=== PATIENT | male | born 1950 | race Caucasian/White ===

== ENCOUNTER 2021-07-16 11:29 | Day surgery (SDC) | payer MEDICARE, OTHER ==
[2021-07-16] VITALS (12 sets, daily range): BP systolic 147–197; BP diastolic 61–104
[~2021-07-16] VITALS: Ht 177.8 cm; Wt 131.1 kg
[~2021-07-16 11:29] MED LIST: fentaNYL/PF 50MCG/1 ML 2ML syringe ONE; iohexol 350 MG/ML 50ML vial IV ONE; iohexol 350MG/ML 100ml bottle IV ONE; midazolam 1 mg/ML 2ml injection ONE
[2021-07-16] MEDS ORDERED: METF-438 PO (12:05)
[2021-07-16] MEDS ORDERED: diphenhydrAMINE 25mg capsule PO PRN (12:05)
[2021-07-16] MEDS ORDERED: LORazepam 0.5 MG tablet PO PRN (12:05)
[2021-07-16] MEDS ORDERED: normal saline 1,000 ML IV SCH (12:05)
[2021-07-16] MEDS ORDERED: nitroGLYCERIN 0.4mg SUBLingual tab SL PRN (12:35)
[2021-07-16] MEDS ORDERED: dextrose 50%-water 50ml dispensing syringe IV PRN ×2 (12:35)
[2021-07-16] MEDS ORDERED: MESSAGE TO PHARMACY PO ONE (12:35)
[2021-07-16] MEDS ORDERED: glucagon, human recombinant 1mg kit SUBCUT PRN (12:35)
[2021-07-16] MEDS ORDERED: DEXTROSE 15 GM of carb/4 tabs (each vial/BOTTLE has 4 tablets) PO PRN ×2 (12:35)
[2021-07-16] MEDS ORDERED: insulin Lispro (HumaLOG) vial - multi-dose SQ SCH (12:35)
[2021-07-16] MEDS ORDERED: midazolam 1 mg/ML 2ml injection ONE (13:26)
[2021-07-16] MEDS ORDERED: LIDOCAINE 1% w/preservative (10 MG/ML) inj. 10mL VIAL ONE (13:26)
[2021-07-16] MEDS ORDERED: proCHLORperazine 10 MG/2 ml inj ONE (13:34)
[2021-07-16] MEDS ORDERED: HYDROmorphone 1 mg/ml syringe ONE (14:10)
[2021-07-16] MEDS ORDERED: nitroGLYCERIN-Tridil 50MG/D5W 250 ML IV ONE (14:28)
[2021-07-16] MEDS ORDERED: enalaprilat dihydrate 2.5mg/2ml vial IV ONE (14:35)
[2021-07-16] MEDS ORDERED: HYDROcodone/acetaminophen 5mg/325mg tablet PO PRN (15:10)
[2021-07-16] MEDS ORDERED: proCHLORperazine 10 MG/2 ml inj IV PRN (15:10)
[2021-07-16] MEDS ORDERED: normal saline 1000ml 1,000 ML IV SCH (15:10)
[2021-07-16] MEDS ORDERED: OXAZEpam 15mg capsule PO PRN (15:10)
[2021-07-16] MEDS ORDERED: HYDROcodone/acetaminophen 10/325mg tab PO PRN (15:10)
[2021-07-16] MEDS ORDERED: ondansetron/PF 4mg/2ml inj IV PRN (15:10)
[2021-07-16] MEDS ORDERED: hydrALAZINE 20mg/ml inj. IV PRN (16:25)
[2021-07-16] MEDS ORDERED: insulin glargine (Lantus) pen - multi-dose SQ SCH (21:00)
== END 2021-07-16 20:50 | disposition home or self-care (01) ==
LOC: SSTAY O 11:29
PROVIDERS: ATTEND Internal Medicine Cardiovascular Disease
DX: R94.39 Abnormal result of other cardiovascular function study (principal); R07.89 Other chest pain; I25.10 Atherosclerotic heart disease of native coronary artery without angina pectoris; I42.9 Cardiomyopathy, unspecified; E11.9 Type 2 diabetes mellitus without complications; I45.10 Unspecified right bundle-branch block; I10 Essential (primary) hypertension; E78.5 Hyperlipidemia, unspecified; J44.9 Chronic obstructive pulmonary disease, unspecified; Z86.718 Personal history of other venous thrombosis and embolism; Z88.0 Allergy status to penicillin; Z88.7 Allergy status to serum and vaccine; Z88.8 Allergy status to other drugs, medicaments and biological substances; Z72.89 Other problems related to lifestyle; F12.90 Cannabis use, unspecified, uncomplicated; Z87.891 Personal history of nicotine dependence; Z86.711 Personal history of pulmonary embolism
CPT/HCPCS: 93458; 99152; 99153; C1760; C1769; J0360; J0780; J1170; J1644; J2250; J3010; J3490; Q0163; Q9967; 93005; A4620; A6258; J1815